=== PATIENT | female | born 1975 | race Caucasian/White ===

== ENCOUNTER 2023-03-25 11:54 | Day surgery (SDC) | payer OTHER ==
[~2023-03-25] VITALS: Ht 165.1 cm; Wt 95.3 kg
[2023-03-25] MEDS ORDERED: LIDOCAINE 2% 100 MG/5 ML UJET TP ONE ×2 (12:43→13:25)
[2023-03-25] MEDS ORDERED: fentaNYL citrate 0.05 MG/ML VIAL ONE (12:43)
[2023-03-25] MEDS ORDERED: fentaNYL citrate 0.05 MG/ML VIAL IVP ONE (13:25)
== END 2023-03-25 13:40 | disposition home or self-care (01) ==
LOC: MDS 11:54 → MMU 11:58 → MDS 13:40
PROVIDERS: ATTEND Internal Medicine Gastroenterology
DX: Z12.11 Encounter for screening for malignant neoplasm of colon (principal); K63.5 Polyp of colon; E11.9 Type 2 diabetes mellitus without complications; I10 Essential (primary) hypertension; Z90.710 Acquired absence of both cervix and uterus; Z79.84 Long term (current) use of oral hypoglycemic drugs; Z79.899 Other long term (current) drug therapy
CPT/HCPCS: 45385; 82948; J3010